=== PATIENT | female | born 1950 | race Caucasian/White ===

== ENCOUNTER 2022-06-04 10:28 | Outpatient (CLI) | payer MEDICARE | END 2022-06-04 10:29 | disposition home or self-care (01) | LOC: CSHCT 10:28 | PROVIDERS: ATTEND Internal Medicine | DX: Z12.2 Encounter for screening for malignant neoplasm of respiratory organs (principal); Z87.891 Personal history of nicotine dependence | CPT/HCPCS: 71271 ==

== ENCOUNTER 2022-06-04 11:11 | Outpatient (CLI) | payer MEDICARE | END 2022-06-04 11:12 | disposition home or self-care (01) | LOC: CSHMAMMO 11:11 | PROVIDERS: ATTEND Internal Medicine | DX: Z12.31 Encounter for screening mammogram for malignant neoplasm of breast (principal); Z80.3 Family history of malignant neoplasm of breast; Z85.3 Personal history of malignant neoplasm of breast; Z90.11 Acquired absence of right breast and nipple | CPT/HCPCS: 77063; 77067 ==

== ENCOUNTER 2023-06-07 08:33 | Outpatient (CLI) | payer MEDICARE | END 2023-06-07 08:34 | disposition home or self-care (01) | LOC: CSHMAMMO 08:33 | PROVIDERS: ATTEND Internal Medicine | DX: Z12.31 Encounter for screening mammogram for malignant neoplasm of breast (principal); Z90.11 Acquired absence of right breast and nipple; Z80.3 Family history of malignant neoplasm of breast; Z85.3 Personal history of malignant neoplasm of breast | CPT/HCPCS: 77063; 77067 ==

== ENCOUNTER 2023-06-07 12:28 | Outpatient (CLI) | payer MEDICARE | END 2023-06-07 12:29 | disposition home or self-care (01) | LOC: CSHCT 12:28 | PROVIDERS: ATTEND Internal Medicine | DX: Z12.2 Encounter for screening for malignant neoplasm of respiratory organs (principal); Z87.891 Personal history of nicotine dependence; R91.1 Solitary pulmonary nodule | CPT/HCPCS: 71271 ==

== ENCOUNTER 2024-07-02 11:58 | Outpatient (CLI) | payer MEDICARE | END 2024-07-02 11:59 | disposition home or self-care (01) | LOC: CSHMAMMO 11:58 | PROVIDERS: ATTEND Internal Medicine | DX: Z12.31 Encounter for screening mammogram for malignant neoplasm of breast (principal); Z80.3 Family history of malignant neoplasm of breast; Z85.3 Personal history of malignant neoplasm of breast; Z90.11 Acquired absence of right breast and nipple | CPT/HCPCS: 77063; 77067 ==

== ENCOUNTER 2024-07-02 12:28 | Outpatient (CLI) | payer MEDICARE | END 2024-07-02 12:29 | disposition home or self-care (01) | LOC: CSHCT 12:28 | PROVIDERS: ATTEND Internal Medicine | DX: Z12.2 Encounter for screening for malignant neoplasm of respiratory organs (principal); Z87.891 Personal history of nicotine dependence | CPT/HCPCS: 71271 ==

== ENCOUNTER 2025-07-17 12:32 | Outpatient (CLI) | payer MEDICARE | END 2025-07-17 12:33 | disposition home or self-care (01) | LOC: CSHMAMMO 12:32 | PROVIDERS: ATTEND Internal Medicine | DX: Z12.31 Encounter for screening mammogram for malignant neoplasm of breast (principal); Z80.3 Family history of malignant neoplasm of breast; Z85.3 Personal history of malignant neoplasm of breast; Z90.11 Acquired absence of right breast and nipple | CPT/HCPCS: 77063; 77067 ==